=== PATIENT | male | born 1990 | race Caucasian/White ===

== ENCOUNTER 2016-04-19 23:28 | Emergency (ER) | payer OTHER ==
[~2016-04-19] VITALS: Ht 170.2 cm; Wt 81.6 kg
--- NOTE | 2016-04-20 00:04 | ED Integumentary General ---
General Chief Complaint: Laceration Stated Complaint: R RING FINGER LAC BLEEDING Source: patient, RN notes reviewed, other (sig other) Exam Limitations: no limitations History of Present Illness Time seen by provider: 00:04 Initial Comments As above. See below. Timing/Duration: just prior to arrival Severity: mild Location: hands (right ring finger) Possible Cause: other (laceration on glass bottle) Associated Symptoms: denies symptoms Allergies and Home Medications Allergies Coded Allergies: No Known Drug Allergies (Unverified , 04/20/16) Constitutional: see HPI Skin: see HPI other (laceration right ring finger) All Other Systems Reviewed Negative Unless Noted: Yes (Negative excepted noted.) Past Ehtdjho-Qpcpza-Nthibl Hx Patient Social History Alcohol Use: Occasionally Uses Recreational Drug Use: No Smoking Status: Unknown if Ever Smoked Recent Foreign Travel: No Contact w/Someone Who Travel: No Recent Hopitalizations: No (uncooperative) Immunizations Up To Date Tetanus Booster (TDap): Less than 5yrs Seasonal Allergies Seasonal Allergies: No (uncooperative) Surgeries HX Surgeries: No (unccoperative) Respiratory Hx Respiratory Disorders: No (uncooperative) Cardiovascular Hx Cardiac Disorders: No (uncooperative) Neurological Hx Neurological Disorders: No (uncooperative) Reproductive System Hx Reproductive Disorders: No (uncooperative) Genitourinary Hx Genitourinary Disorders: No (uncooperative) Gastrointestinal Hx Gastrointestinal Disorders: No (uncooperative) Musculoskeletal Hx Musculoskeletal Disorders: No (uncooperative) Endocrine Hx Endocrine Disorders: No (uncooperative) HEENT HX ENT Disorders: No (uncooperative) Cancer Hx Cancer: No (uncooperative) Psychosocial Hx Psychiatric Problems: No (uncooperative) Integumentary HX Skin/Integumentary Disorder: No (uncooperative) Blood Transfusions Hx Blood Disorders: No (uncooperative) Physical Exam Vital Signs Vital Sign - Last 12Hours 04/19/16 23:38 Temp 97.8 Pulse 105 Resp 20 B/P 136/86 Pulse Ox 95 O2 Delivery Room Air Capillary Refill : General Appearance: WD/WN no apparent distress other (obviously intoxicated) HEENT: other (strong AOTB) Cardiovascular: tachycardia Respiratory: no respiratory distress Extremities: normal range of motion (right ring finger) other (right hand covered in dried blood from laceration to right ring finger) Neurologic/Psychiatric: no motor/sensory deficits alert other (intoxicated; admits to drinking this PM) Skin: warm/dry Skin Problem Location: upper extremities (right ring finger) Skin Problem Character: linear (2 cm laceration right ring finger) Laceration Repair : Wound Location: Upper Extremities (right ring finger) Wound Length (cm): 2 Wound's Depth, Shape: linear, sub Q Wound Explored: no foreign body removed Anesthesia: 1% Lidocaine Volume Anesthetic (ccs): 5 Suture: Ethlion Suture Size: 4-0 F5-2 Number of Sutures: 3 Sterile Dressing Applied?: Yes Progress Tolerated well Progress/Results/Core Measures Results/Orders My Orders Orders-SIMON HOGUE DO Lidocaine 2% Injection 20 Ml (Xylocaine (04/20/16 00:15) Wound Dressing-Ed (04/20/16 00:58) Medications Given in ED Vital Signs/I&O Vital Sign - Last 12Hours 04/19/16 04/20/16 04/20/16 23:38 00:30 01:11 Temp 97.8 97.8 97.8 Pulse 105 105 Resp 20 20 B/P 136/86 Pulse Ox 95 95 O2 Delivery Room Air Departure Impression Impression: Primary Impression: Finger laceration Disposition: 01 HOME, SELF-CARE Condition: Improved Departure-Patient Inst. Decision time for Depature: 00:57 Referrals: NO,LOCAL PHYSICIAN (PCP) Primary Care Physician Patient Instructions: Laceration Repair With Stitches (DC) Add. Discharge Instructions: All discharge instructions reviewed with patient and/or family. Voiced understanding. HAVE SUTURES REMOVED IN 10 DAYS. SIMON HOGUE DO Apr 20, 2016 00:04 Finger laceration Disposition: 01 HOME, SELF-CARE Condition: Improved Departure-Patient Inst. Decision time for Depature: 00:57 Referrals: NO,LOCAL PHYSICIAN (PCP) Primary Care Physician Patient Instructions: Laceration Repair With Stitches (DC) Add. Discharge Instructions: All discharge instructions reviewed with patient and/or family. Voiced understanding. HAVE SUTURES REMOVED IN 10 DAYS. SIMON HOGUE DO Apr 20, 2016 00:04
[2016-04-20] MEDS ORDERED: LIDOCAINE 2% 20 ML (XYLOCAINE) VIAL INJ ONE (00:15)
[2016-04-20 01:11] VITALS: BP 136/86
== END 2016-04-20 01:11 | disposition home or self-care (01) ==
LOC: ER 23:33
DX: S61.214A Laceration without foreign body of right ring finger without damage to nail, initial encounter (principal); F10.129 Alcohol abuse with intoxication, unspecified; W25.XXXA Contact with sharp glass, initial encounter; Y99.8 Other external cause status